=== PATIENT | male | born 1965 | race Caucasian/White ===

== ENCOUNTER 2020-06-25 14:32 | Outpatient (REF) | payer BC, SELFPAY ==
[2020-06-25 17:56] LABS: MANUAL DIFF FLAG NO
[2020-06-25 18:02] LABS: Basophils Percent Auto 0.4 % (0-2); Eosinophils Absolute Auto 0.2 X10*3/uL (0.0-0.4); Eosinophils Percent Auto 2.6 % (0-4); Hematocrit 41.2 % (42-52); Hemoglobin 13.8 g/dl (14.0-18.0); Imm Gran Abs Auto 0.02 X10*3/uL (0.00-0.03); Imm Gran Pct Auto 0.2 % (0.0-0.4); Lymphocytes Absolute Auto 1.8 X10*3/uL (1.2-4.9); Lymphocytes Percent Auto 19.6 % (20-40); Mean Corpuscular HGB Conc 33.5 g/dl (31.0-36.0); Mean Corpuscular Hemoglobin 29.4 pg (27.0-33.0); Mean Corpuscular Volume 87.7 fL (80-98); Mean Platelet Volume 10.1 fL (9.4-12.4); Monocytes Absolute Auto 0.6 X10*3/uL (0.1-1.2); Monocytes Percent Auto 6.2 % (2-11); Neutrophils Absolute Auto 6.5 X10*3/uL (2.0-8.3); Platelet Count 231 X10*3/uL (160-400); Red Cell Distribution Width 13.1 % (11.0-16.0); White Blood Count 9.1 X10*3/uL (4.8-10.8)
[2020-06-25 18:31] LABS: Alanine Aminotransferase 22 U/L (0-40); Albumin Level 4.4 g/dL (3.5-5.0); Alkaline Phosphatase 77 U/L (39-117); Anion Gap 14 (12-20); Aspartate Amino Transferase 11 U/L (5-37); Bilirubin Total 0.6 mg/dL (0.0-1.0); Blood Urea Nitrogen 12 mg/dL (9-16); Calcium 10.4 mg/dL (8.4-10.2); Carbon Dioxide 29 mmol/L (22-29); Chloride 103 mmol/L (96-108); Estimated Glomerular Filt Rate > 60; Glucose Random 95 mg/dL (60-115); Potassium 4.3 mmol/L (3.3-5.1); Sodium 142 mmol/L (135-145); Total Protein 6.8 g/dL (6.5-8.0)
[2020-06-25 18:52] LABS: Free T4 (Free Thyroxine) 0.92 ng/dL (0.71-1.85); Thyroid Stimulating Hormone 4.01 uIU/mL (0.32-4.0)
[2020-06-26 07:41] LABS: Estimated Average Glucose 108 mg/dL; Hemoglobin A1c % 5.4 %
== END 2020-06-25 14:33 | disposition home or self-care (01) ==
LOC: HO.MANLDS 14:32
PROVIDERS: PCP Internal Medicine; Visit Provider Physician Assistant
DX: I10 Essential (primary) hypertension (principal); E66.9 Obesity, unspecified
CPT/HCPCS: 36415; 80053; 83036; 84439; 84443; 85025

== ENCOUNTER 2020-12-31 10:33 | Outpatient (REF) | payer BC, SELFPAY ==
[2020-12-31 13:26] LABS: Free T4 (Free Thyroxine) 1.29 ng/dL (0.71-1.85); Thyroid Stimulating Hormone 0.96 uIU/mL (0.32-4.0)
== END 2020-12-31 10:34 | disposition home or self-care (01) ==
LOC: HO.MANLDS 10:33
PROVIDERS: PCP Physician Assistant; Visit Provider Physician Assistant
DX: E21.3 Hyperparathyroidism, unspecified (principal)
CPT/HCPCS: 36415; 84439; 84443

== ENCOUNTER 2021-03-31 11:15 | Outpatient (REF) | payer BC, SELFPAY ==
[2021-04-01 08:48] LABS: HBS Num1 8.07 mIU/mL (0-7.99)
[2021-04-01 09:06] LABS: Rubella IgG Antibody 2.76 Index; Rubeola IgG (Measles) >300.00 AU/mL
[2021-04-01 10:44] LABS: HBS Num2 8.42 mIU/mL (0-7.99); HBS Num3 9.25 mIU/mL (0-7.99); ~Hepatitis B Surface Antibody GRAYZONE (Nonreactive)
== END 2021-03-31 11:16 | disposition home or self-care (01) ==
LOC: HO.MANLDS 11:15
PROVIDERS: PCP Physician Assistant; Visit Provider Physician Assistant
DX: Z01.84 Encounter for antibody response examination (principal)
CPT/HCPCS: 36415; 86706; 86735; 86762; 86765; 86787

== ENCOUNTER 2021-04-14 10:39 | Outpatient (REF) | payer BC, SELFPAY ==
[2021-04-15 07:57] LABS: HBS Num1 7.52 mIU/mL (0-7.99); ~Hepatitis B Surface Antibody NONREACTIVE (Nonreactive)
== END 2021-04-14 10:40 | disposition home or self-care (01) ==
LOC: HO.MANLDS 10:39
PROVIDERS: PCP Physician Assistant; Visit Provider Physician Assistant
DX: Z01.84 Encounter for antibody response examination (principal)
CPT/HCPCS: 36415; 86706

== ENCOUNTER 2021-05-15 08:56 | Outpatient (REF) | payer BC, SELFPAY ==
--- NOTE | ~2021-05-15 | CT_ITS ---
EXAMINATION: CT CHEST WITHOUT CONTRAST CLINICAL INFORMATION: Shortness of breath. COMPARISON: None TECHNIQUE: Multidetector volumetric CT imaging of the chest was done. Axial MIP volume rendering provided. Sagittal and coronal reformatted images were obtained. This CT examination was performed using dose optimization techniques as appropriate, variously including the following: *Automated exposure control *Adjustment of mA and/or kV according to patient size (this includes techniques or standardized protocols for targeted exams where dose is matched to indication/reason for exam; i.e. extremities or head) *Use of iterative reconstruction technique DLP: 317 mGy-cm FINDINGS: CLIENT RELATION SPECIALIST: Elevated bilateral hemidiaphragms. LUNGS: The lungs are well expanded with no acute pneumonic process seen. There is a 5 mm triangular density right middle lobe adjacent to the right minor fissure axial image 84/6, likely a subpleural nodule. No additional nodules seen. There is no interstitial thickening, consolidation or ground-glass density. No evidence of bronchiectasis or peribronchial thickening. MEDIASTINUM: The central trachea and the bronchi are widely patent. The heart size and the great vessels are normal caliber. There are trace coronary artery calcifications. No pericardial effusion seen. No abnormal sized mediastinal or hilar lymph nodes visualized. PLEURA: There is no pleural effusion. No pleural mass or thickening. AXILLA: No lymphadenopathy. Incidental finding of right infraspinatus moderate-sized lipoma. UPPER ABDOMEN: There are punctate radiopaque gallstones without wall thickening. The visualized liver, spleen, pancreas, and bilateral adrenal glands are unremarkable. OSSEOUS STRUCTURES: There is moderate ventral spondylosis throughout the dorsal spine. No lytic process seen. CT/CT chest wo con IMPRESSION: No acute cardiopulmonary process seen. Triangular subpleural density right middle lobe adjacent to minor fissure is likely a small lymph node. No interstitial lung disease or ground-glass attenuation seen. Fleischner guidelines were followed.
== END 2021-05-15 08:57 | disposition home or self-care (01) ==
LOC: HO.CT 08:56
PROVIDERS: PCP Internal Medicine; Visit Provider Physician Assistant
DX: R06.02 Shortness of breath (principal)
CPT/HCPCS: 71250

== ENCOUNTER 2021-12-08 09:14 | Outpatient (REF) | payer BC, SELFPAY ==
[2021-12-08 10:21] LABS: MANUAL DIFF FLAG NO
[2021-12-08 10:23] LABS: Basophils Percent Auto 0.1 % (0-2); Eosinophils Absolute Auto 0.3 X10*3/uL (0.0-0.4); Eosinophils Percent Auto 2.7 % (0-4); Hematocrit 41.7 % (42.0-52.0); Hemoglobin 14.4 g/dl (14.0-18.0); Imm Gran Abs Auto 0.05 X10*3/uL (0.00-0.03); Imm Gran Pct Auto 0.5 % (0.0-0.4); Lymphocytes Absolute Auto 1.5 X10*3/uL (1.2-4.9); Lymphocytes Percent Auto 14.8 % (20-40); Mean Corpuscular HGB Conc 34.5 g/dl (31.0-36.0); Mean Corpuscular Hemoglobin 29.6 pg (27.0-33.0); Mean Corpuscular Volume 85.8 fL (80.0-98.0); Mean Platelet Volume 9.6 fL (9.4-12.4); Monocytes Absolute Auto 0.6 X10*3/uL (0.1-1.2); Monocytes Percent Auto 5.5 % (2-11); Neutrophils Absolute Auto 7.7 x10*3/uL (2.0-8.3); Neutrophils Percent Auto 76.4 % (45-73); Platelet Count 248 X10*3/uL (160-400); Red Blood Count 4.86 X10*6/uL (4.60-5.80); Red Cell Distribution Width 13.7 % (11.0-16.0); White Blood Count 10.1 X10*3/uL (4.8-10.8)
[2021-12-08 10:40] LABS: Estimated Average Glucose 111 mg/dL; Hemoglobin A1c % 5.5 %
[2021-12-08 11:07] LABS: Alanine Aminotransferase 20 U/L (0-40); Albumin Level 4.2 g/dL (3.5-5.0); Alkaline Phosphatase 77 U/L (39-117); Anion Gap 13 (12-20); Aspartate Amino Transferase 11 U/L (5-37); Bilirubin Total 0.7 mg/dL (0.0-1.0); Blood Urea Nitrogen 13 mg/dL (9-16); Carbon Dioxide 30 mmol/L (22-29); Chloride 101 mmol/L (96-108); Cholesterol 197 mg/dL; Estimated Glomerular Filt Rate > 60; Glucose Random 95 mg/dL (60-115); HDL Cholesterol 53 mg/dL; LDL Cholesterol Calculated 124 mg/dl; Potassium 4.3 mmol/L (3.3-5.1); Sodium 140 mmol/L (135-145); Total Protein 6.7 g/dL (6.5-8.0); Triglycerides 101 mg/dL
[2021-12-08 11:17] LABS: Free T4 (Free Thyroxine) 1.16 ng/dL (0.71-1.85); Prostate Specific Antigen 2.73 ng/mL (<0.05-4.0); Thyroid Stimulating Hormone 1.24 uIU/mL (0.32-4.0)
== END 2021-12-08 09:15 | disposition home or self-care (01) ==
LOC: HO.MANLDS 09:14
PROVIDERS: Visit Provider Physician Assistant
DX: Z12.5 Encounter for screening for malignant neoplasm of prostate (principal); I10 Essential (primary) hypertension; E03.9 Hypothyroidism, unspecified; E78.00 Pure hypercholesterolemia, unspecified; R73.01 Impaired fasting glucose
CPT/HCPCS: 36415; 80053; 80061; 83036; 84153; 84439; 84443; 85025

== ENCOUNTER 2022-03-24 11:54 | Outpatient (REF) | payer BC, SELFPAY ==
[2022-03-24 15:43] LABS: Vitamin B12 199 pg/mL (200-900)
== END 2022-03-24 11:55 | disposition home or self-care (01) ==
LOC: HO.MANLDS 11:54
PROVIDERS: Visit Provider Physician Assistant
DX: E53.8 Deficiency of other specified B group vitamins (principal)
CPT/HCPCS: 36415; 82607; 82746

== ENCOUNTER 2023-12-08 09:28 | Outpatient (REF) | payer BC, SELFPAY ==
[2023-12-08 13:09] LABS: MANUAL DIFF FLAG NO
[2023-12-08 13:16] LABS: Basophils Percent Auto 0.2 % (0-2); Eosinophils Absolute Auto 0.2 X10*3/uL (0.0-0.4); Hematocrit 40.2 % (42.0-52.0); Hemoglobin 13.7 g/dl (14.0-18.0); Imm Gran Abs Auto 0.02 X10*3/uL (0.00-0.03); Imm Gran Pct Auto 0.2 % (0.0-0.4); Lymphocytes Absolute Auto 1.6 X10*3/uL (1.2-4.9); Lymphocytes Percent Auto 19.5 % (20-40); Mean Corpuscular HGB Conc 34.1 g/dl (31.0-36.0); Mean Corpuscular Hemoglobin 29.2 pg (27.0-33.0); Mean Corpuscular Volume 85.7 fL (80.0-98.0); Mean Platelet Volume 10.1 fL (9.4-12.4); Monocytes Absolute Auto 0.5 X10*3/uL (0.1-1.2); Monocytes Percent Auto 6.2 % (2-11); Neutrophils Absolute Auto 5.8 x10*3/uL (2.0-8.3); Neutrophils Percent Auto 70.9 % (45-73); Platelet Count 220 X10*3/uL (160-400); Red Blood Count 4.69 X10*6/uL (4.60-5.80); Red Cell Distribution Width 13.4 % (11.0-16.0); White Blood Count 8.1 X10*3/uL (4.8-10.8)
[2023-12-08 14:01] LABS: Prostate Specific Antigen 4.47 ng/mL (<0.05-4.0)
[2023-12-08 14:06] LABS: Alanine Aminotransferase 20 U/L (0-40); Albumin Level 4.2 g/dL (3.5-5.0); Alkaline Phosphatase 72 U/L (39-117); Anion Gap 12 (12-20); Aspartate Amino Transferase 15 U/L (5-37); Bilirubin Total 0.8 mg/dL (0.0-1.0); Blood Urea Nitrogen 12 mg/dL (9-16); Calcium 10.1 mg/dL (8.4-10.2); Carbon Dioxide 27 mmol/L (22-29); Chloride 105 mmol/L (96-108); Cholesterol 113 mg/dL (<200); Estimated Average Glucose 111 mg/dL; Estimated Glomerular Filt Rate > 60; Glucose Random 98 mg/dL (60-115); HDL Cholesterol 48 mg/dL (>40); Hemoglobin A1c % 5.5 % (<6.0); Iron 91 mcg/dL (45-160); LDL Cholesterol Calculated 49 mg/dL (<100); Percent Iron Saturation 32 % (15-50); Potassium 3.3 mmol/L (3.3-5.1); Sodium 141 mmol/L (135-145); Total Iron Binding Capacity 281 mcg/dL (228-428); Total Protein 6.7 g/dL (6.5-8.0); Triglycerides 84 mg/dL (<150); Unsaturated Iron Binding 190 ug/dL
[2023-12-08 14:15] LABS: Folate 15.1 ng/mL (> or = 4.0); Vitamin B12 695 pg/mL (200-900)
[2023-12-08 14:26] LABS: Ferritin 51 ng/mL (20-250); Free T4 (Free Thyroxine) 0.96 ng/dL (0.71-1.85); Thyroid Stimulating Hormone 1.83 uIU/mL (0.32-4.0)
== END 2023-12-08 09:29 | disposition home or self-care (01) ==
LOC: HO.MANLDS 09:28
PROVIDERS: Visit Provider Physician Assistant
DX: E53.8 Deficiency of other specified B group vitamins (principal); E03.8 Other specified hypothyroidism; Z13.6 Encounter for screening for cardiovascular disorders; Z13.1 Encounter for screening for diabetes mellitus; Z12.5 Encounter for screening for malignant neoplasm of prostate
CPT/HCPCS: 36415; 80053; 80061; 82607; 82728; 82746; 83036; 83540; 84153; 84439; 84443; 85025

== ENCOUNTER 2024-01-28 14:32 | Outpatient (REF) | payer BC, SELFPAY ==
[2024-01-28 18:38] LABS: Prostate Specific Antigen 4.37 ng/mL (<0.05-4.0)
== END 2024-01-28 14:33 | disposition home or self-care (01) ==
LOC: HO.WFDLDS 14:32
PROVIDERS: Visit Provider Physician Assistant
DX: N40.0 Benign prostatic hyperplasia without lower urinary tract symptoms (principal); Z12.5 Encounter for screening for malignant neoplasm of prostate
CPT/HCPCS: 36415; 84153

== ENCOUNTER 2024-11-28 12:11 | Outpatient (REF) | payer BC, SELFPAY ==
--- OUTSIDE RECORDS SUMMARY | 2024-11-28 13:04 | XMS_ITS | Encounter Summary ---
Author Organization [facility] Address [address] [place] [address] Phone Care Team Providers Care Novelty Twister Tender Name Role Phone Joseph Allen DO Unavailable Joseph Allen DO Primary Care Provider [phone] Reason for Visit * Reason Comments Medication Refill Encounter Details Date Type Department Care Team (Late st Contact Info) Description 11/28/2024 Refill [facility] [address] [place] [address] 3rd Floor, [address] [place] [address] Kody Galvan MD [address] [facility], [address] [place] [address] [email or web address] Medication Refill Social History Tobacco Use Types Packs/Day Years Used Date Smoking Tobacco: Never Smokeless Tobacco: Never Alcohol Use Standard Drinks/Week Comments Yes 1 (1 standard drink = 0.6 oz pur e alcohol) 5 month Education Answer Date Recorded Are you interested in more education? Not on kajal e 08/28/2022 Are you concerned about learning? Not on file 08/28/2022 No 08/28/2022 No 08/28/2022 Digital Access Answer Date Recorded No 09/26/2022 No 09/26/2022 Reliable internet access at home? Not on file 09/26/2022 Device with a working camera? Not on file Intimate Partner Violence Answer Date R ecorded Denied Basic Needs Not on file 05/25/2022 In the past 12 months have y ou been in a relationship with a person who hurts, threatens, or tries to control you? No 05/25/2022 Worried food would run out Not on file 05/25 In the past 12 months have y ou been in a relationship with a person who hurts, threatens, or tries to control you? No 05/25/2022 Sex and Gender Information Value Date Recorded Sex Assigned at Not on file Legal Sex Male 9:42 PM EDT Gender Identity Not on file Sexual Orientation Not on file documented as of this encounter Progress Notes * Sameera Sloan MA - 11/28/2024 9:59 AM EDT RX REVIEWED documented in this encounter Plan of Treatment Upcoming Encounters Date Type Department Care Team (Late st Contact Info) Description 03/01/2025 10:15 AM EDT Appointment [address] [address] Jed Paulino MD [address] [place] [id number] 05/15/2025 9:20 AM EST Office Visit [facility] [address] [place] [address] [address]rd Floor, [address] [place] [address] Jey Doss MD [address] [place] [id number] documented as of this encounter Visit Diagnoses Diagnosis Angina pectoris Other and unspecified angina pectoris documented in this encounter Care Teams Novelty Twister Tender Relationship Specialty Start Date End Date Joseph Allen DO [address] [facility] [place] [address] PCP - General Internal Medicine 03/21/21 Joseph Allen DO [address] [place] [address] [email or web address] Insurance Assigned Provider 08/07/23 documented as of this encounter Additional Source Comments The information contained in this document represents components of the legal health record. It is not the complete legal health record.[facility]
--- OUTSIDE RECORDS SUMMARY | 2024-11-28 13:04 | XMS_ITS | Data Portability ---
Author Organization [facility], [facility] Address [address] [place] [address] Care Team Providers Care Pharmacy District Manager Name Role Phone KEISHA GONZALEZ Primary Care Provider [phone] FRANTZ QUEZADA Primary Care Provider Assessment Encounter Date Assessment Date Assessment LastModified by Organization Details LastModified Time 04/03/2016 04/03/2016 51yo man, with a family history high calcium in his brother, and personal history of hypertension, kindly referred by Dr. Dimas to review hyperparathyroidism, off hctz few months or a year (possibly 01/15 - 01/16). Stopping hydrochlorothiazide has reduced calcium, but parathyroid hormone remains up and he is relatively young. Labs reviewed: 03/31/16 pth 95pg/mL, cr 0.6, ca 10mg/dL, albumin 4.5g/dL, 11/08/15 glc 100mg/dL, cr 0.6, ca 9.6 (ref 8.4, 10.3), phos 3.4mg/dL (ref 2.7, 4.5), gfr >60mL/min, pth 123pg/mL (ref 15, 65), 11/10/15 urine calcium 218mg/24h, urine cr 1683mg/24h, fractional excretion of calcium 0.008 [FECa; (218/9.6)/(1683/0.6)] , urine volume 1.7L/24h, urine phos 1110mg/24h (ref 400, 1300), 05/08/15 pth 106. Serum calcium has been high normal since testing started in 2010, was mildly elevated between 10.5 and 10.8mg/dL from 04/19/14 to 05/08/15, and fell to a colleen of 9.6 on most recent testing on 11/08/15. FECa less than 0.01, family history of high calcium in his brother, and the stability of calcium levels over time raise the possibility of familial hypocalciuric hypercalcemia (FHH), though this also may be due to use of hctz (he is unsure if he was on hctz during urine testing). However, an evolving parathyroid adenoma is possible, the lower serum creatinine contributes to a lower FECa, and urine calcium is high normal. Even if this is a parathyroid andenoma, there is no firm indication for parathyroidectomy. I suggest a DXA bone density test, repeating blood calcium testing in 6mo, clarifying his family history of high calcium, kidney stones or osteoporosis, and discussing again in 6mo. If FECa remains low off of hctz and serum calcium rises, genetic testing for CaSR gene could be considered to exclude FHH. I spent 3 minutes counseling the patient on tobacco cessation. He is precontemplative due to low use 6 to 8 times yearly. [email or web address] Not available 04/03/2016 09:11:22 06/30/2023 06/30/2023 58yo man, with a family history high calcium in his brother, and personal history of hypertension, kindly referred by Dr. Gonzalez to review hyperparathyroidism, off hctz few months or a year (possibly 01/15 - 01/16). Stopping hydrochlorothiazide has reduced calcium, but parathyroid hormone remains up and he is relatively young. Labs reviewed: 01/28/23 cr 0.5, ca 10.3, albumin 4.5, corrected ca 9.9, glc 94, phos 2.7, tsh 3.2, pth 85 (ref 15, 65), 03/31/16 pth 95pg/mL, cr 0.6, ca 10mg/dL, albumin 4.5g/dL, 11/08/15 glc 100mg/dL, cr 0.6, ca 9.6 (ref 8.4, 10.3), phos 3.4mg/dL (ref 2.7, 4.5), gfr >60mL/min, pth 123pg/mL (ref 15, 65), 11/10/15 urine calcium 218mg/24h, urine cr 1683mg/24h, fractional excretion of calcium 0.008 [FECa; (218/9.6)/(1683/0.6)] , urine volume 1.7L/24h, urine phos 1110mg/24h (ref 400, 1300), 05/08/15 pth 106. Serum calcium has been high normal since testing started in 2010, was mildly elevated between 10.5 and 10.8mg/dL from 04/19/14 to 05/08/15, and fell to a colleen of 9.6 on 11/08/15. Pth has been stable and mildly high. Calcium has been normal recently. Thyroid hormone is normal. 04/23/16 DXA described L1:4 t-score +2.2 and left femoral neck t-score +0.6, which is consistent with normal bone density. We discussed his normocalcemic hyperparathyroidism. He has had normal bone density, which is reassuring. The differential includes an early parathyroid adenoma, familial hypocalciuric hypercalcemia (FHH), or other issue. I suggest updating a bone density and routine labs with wellness visits but do not see a reason for intervention at this time. Reasons to reevaluate for surgery would be calcium above 1 more than the upper limit of normal, fragility fracture, osteoporosis on DXA, or kidney stones. BP is at goal, though chlorthalidone may contribute to higher blood calcium if this becomes a concern due to reduced urine calcium. The patient will follow up with you for monitoring, labs, and scripts in the future. They will only see me as needed for follow up. [email or web address] Not available 06/30/2023 09:23:44 Plan of Treatment Reminders Order Date Submit Date Provider Last Modified By Organization Details Last Modified Time Details Appointments None recorded. Lab None recorded. Referral None recorded. Procedures None recorded. Surgeries None recorded. Imaging bone density 2023 024 [facility], [address] [facility], [place], [address], 5 10:01:04 bone density 2015 016 [facility] ([facility]), [address], [place], [address], 6 10:30:28 Medication Orders None recorded. Patient TargetsNo targets recorded. Patient Instructions Encounter Date Encounter Id Patient Instructions Last Modified By Organization Details Last Modified Time 04/03/2016 [id number] -we discussed normalized calcium -borderline high calcium may be due to a normal variation or a tumor -borderline high calcium is not concerning -bone density testing -blood tests 6mo to monitor, discuss again 2 weeks later -clarify when you stopped hydrochlorothiazide hctz, were you on this when you had the 24h urine test in 11/15? -I encourage stopping tobacco/cigar use completely -you decline quitting for now due to low [email or web address] Not available 04/03/2016 09:10:58 Reason for Referral None Reported. Results Created Date Observation Date Name Description Value Unit Range Abnormal Flag Note LastModifiedBy Organization Detail LastModifiedTime 03/31/20 16 03/31/2016 PTH (para thyro id hormo ne), intac t, serum or plasm a PTH, stat 95 pg/mL 15-65 high Not Available [address], [address], 03/31/2016 18:37:35 03/31/20 16 03/31/2016 CMP, serum or plasm a glucose 153 mg/dL 70-99 high Not Available [address], [address], 03/31/2016 18:52:40 03/31/20 16 03/31/2016 CMP, serum or plasm a BUN 12 mg/dL 6-19 Not Available [address], [address], 03/31/2016 18:52:40 03/31/20 16 03/31/2016 CMP, serum or plasm a creatinine 0.6 mg/dL 0.5-1. 5 Not Available [address], [address], 03/31/2016 18:52:40 03/31/20 16 03/31/2016 CMP, serum or plasm a GFR >60 mL/mi n >60 NKDEP (Debbi onal Kidne y Disea se Educa tion Progr am) does not endor se the use of the MDRD (Ary ficat ion of Diet in Renal Disea se) equat ion for estim ating GFR in patie nts that are not betwe en the ages of 18 and 70. Not Available [address], [address], 03/31/2016 18:52:40 03/31/20 16 03/31/2016 CMP, serum or plasm a sodium 141 mEq/L 133-14 6 Not Available [address], [address], 03/31/2016 18:52:40 03/31/20 16 03/31/2016 CMP, serum or plasm a potassium 3.8 mEq/L 3.3-5. 2 Not Available [address], [address], 03/31/2016 18:52:40 03/31/20 16 03/31/2016 CMP, serum or plasm a chloride 103 mEq/L 96-108 Not Available [address], [address], 03/31/2016 18:52:40 03/31/20 16 03/31/2016 CMP, serum or plasm a CO2 23 mEq/L 21-35 Not Available [address], [address], 03/31/2016 18:52:40 03/31/20 16 03/31/2016 CMP, serum or plasm a calcium 10.0 mg/dL 8.4-10 .3 Not Available [address], [address], 03/31/2016 18:52:40 03/31/20 16 03/31/2016 CMP, serum or plasm a total bilirubin 0.5 mg/dL 0.0-1. 2 Not Available [address], [address], 03/31/2016 18:52:40 03/31/20 16 03/31/2016 CMP, serum or plasm a alkaline phosphatase 79 U/L 39-117 Not Available [address], [address], 03/31/2016 18:52:40 03/31/20 16 03/31/2016 CMP, serum or plasm a AST (SGOT) 10 U/L 0-37 Not Available [address], [address], 03/31/2016 18:52:40 03/31/20 16 03/31/2016 CMP, serum or plasm a ALT (SGPT) 16 U/L 0-40 Not Available [address], [address], 03/31/2016 18:52:40 03/31/20 16 03/31/2016 CMP, serum or plasm a total protein 6.7 g/dL 6.5-8. 0 Not Available [address], [address], 03/31/2016 18:52:40 03/31/20 16 03/31/2016 CMP, serum or plasm a albumin 4.5 g/dL 3.9-4. 8 Not Available [address], [address], 03/31/2016 18:52:40 03/31/20 16 03/31/2016 CMP, serum or plasm a globulin 2.2 gm/dL 1.0-4. 8 Not Available [address], [address], 03/31/2016 18:52:40 03/31/20 16 03/31/2016 CMP, serum or plasm a A/G ratio 2.0 gm/dL 1.0-4. 8 Not Available [address], [address], 03/31/2016 18:52:40 03/31/20 16 03/31/2016 CMP, serum or plasm a anion gap 19 mEq/L 10-20 Not Available [address], [address], 03/31/2016 18:52:40 04/27/20 16 04/23/2016 bone densi ty OBSERV ATION: Your patien t comple caitlyn a bone minera l densit y test at our facili ty on . The indica tions were Caucas janet race and hyperp arathy roidis m. There were no prior studie s availa ble for compar nhi. His AP lumbar spine T score averag e is +2.2. is AP lumbar spine T score averag e is +2.2. His femora l neck T score mean is +0.8. At this time, your patien t has a normal bone minera l densit y. No follow -up studie s are necess henry unless clinic ally indica caitlyn. Electr onical ly signed Rere gonzales: Fede Michaels MD [facility] ([facility]) [address], [place], [address], 05/08/2016 14:10:24 Result Notes None recorded. Procedures Surgical History Date Name Laterality Status Provider Name and Address Organization Details Recorded Time 05/22/19 15 Forest - Colonoscopy completed Chris Garg [address] [place] [address], [phone], [facility] 05/22/2014 14:33:47 05/03/19 11 Tonsillectomy completed Ambar Maxwell RN BSN [address] [place] [address], [phone], [facility] 04/03/2016 08:32:41 05/03/19 11 Sinus Surgery completed Jed Paulino MD [address] [place] [address], [phone], [facility] 04/03/2016 08:45:28 Imaging Results None recorded. Procedure Notes None recorded. Medical Equipment None Reported. Allergies No known drug allergies Medications Name Sig Start Date Stop Date Status Note LastModified by Organization Details LastModified Time cyclobenza loida 10 mg tablet 1 tab PO daily active Not Available Not Available No t Available ketoconazo le 2 % shampoo PLEASE SEE ATTACHED FOR DETAILED DIRECTIO NS 06/30 completed Not Available Not Available Not Available isosorbide mononitrat e ER 30 mg tablet,ext ended release 24 hr TAKE 1 TABLET BY MOUTH EVERY DAY active as needed Not Available Not Available Not Available Synthroid 100 mcg tablet active Not Available Not Available Not Available valsartan 160 mg-hydroch lorothiazi de 12.5 mg tablet 04/03 completed Not Available Not Available Not Available alclometas one 0.05 % topical cream active Not Available Not Available Not Available chlorthali done 25 mg tablet active Not Available Not Available Not Available amlodipine 10 mg tablet 1 tab PO daily active Not Available Not Available No t Available cyanocobal tatum (vit B-12) 1,000 mcg/mL injection solution INJECT 1 ML SUBCUTAN EOUSLY EVERY MONTH active Not Available Not Available No t Available nitroglyce rin 0.[address] 1 TABLET UNDER TONGUE EVERY 5 MINUTES NEEDED FOR CHEST PAIN UP TO 3 DOSES active Not Available Not Available No t Available metoprolol succinate ER 25 mg tablet,ext ended release 24 hr TAKE 1 TABLET (25 MG TOTAL) BY MOUTH DAILY. active Not Available Not Available No t Available zolpidem 10 mg tablet 1 tab PO daily PRN active Not Available Not Available No t Available fluocinoni de 0.05 % topical cream active Not Available Not Available Not Available irbesartan 300 mg tablet active Not Available Not Available Not Available valsartan 160 mg tablet active Not Available Not Available Not Available azithromyc in 500 mg tablet TAKE 1 TABLET EVERYDAY BY MOUTH FOR TRAVELER 'S DIARRHEA active Not Available Not Available No t Available rosuvastat in 20 mg tablet active Not Available Not Available Not Available Klor-Con M20 mEq tablet,ext ended release TAKE 1 TABLET BY MOUTH EVERY DAY active Not Available Not Available No t Available zolpidem ER 6.25 mg tablet,ext ended release,mu ltiphase active Not Available Not Available Not Available aspirin 81 mg , takes 2 tabs active Not Available Not Available No t Available BD Insulin Syringe Ultra-Fine 1 mL 30 gauge x 1/2 active Not Available Not Available Not Available Vitals Date Recorded Body weight Body mass index (BMI) Body height Heart rate Systolic And Diastolic Provider Name and Address Organization Details Last Updated DateTime 06/30/2023 002980.5 g 39 kg/m2 170.18 cm 69 /min 116/74 mm[Hg] Hayley Donovan LPN [facility] 06/30/2023 08:40:50 Date Recorded Body weight Body height Body mass index (BMI) Heart rate Systolic And Diastolic Provider Name and Address Organization Details Last Updated DateTime 04/03/2016 831059.3 9 g 170.18 cm 37.1 kg/m2 66 /min 130/86 mm[Hg] Ambar Maxwell RN BSN [address] [place], [address] , [facility] 04/03/2016 08:36:56 Social History Question Answer Notes LastModified by Organizat ion Details LastModified Time Tobacco Smoking Status Former Smoker occasional cigars, 04/03/16 may smoke occasional cigar Hayley Donovan LPN null, [facility] 06/30/2023 08:38:26 Which Illicit Or Recreational Drugs Have You Used? None Denies, 04/03/16 [email or web address] Information not available 04/03/2016 Sex: Unknown Functional Status Question Answer Note LastModified by Organizat ion Details LastModified Time What is your level of alcohol consumption? 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 Family History Relationship Description Onset Age of this Age Resolved Age Notes LastModified by Organization Details LastModified Time Father Congestive heart failure 76 dads passed 2005 76 years Not available 06/30/2023 08:35:44 Father Essential hypertension [email or web address] Not available 06/2015 08:30:30 Father Heart disease [email or web address] Not available 2015 08:40:30 Mother Diabetes mellitus Mom had stroke 2020 Not available 06/30/2023 08:37:11 Sister Hoffmann syndrome sister passed 2001 Not available 06/30/2023 08:36:35 Brother Hypercalcemi a [email or web address] Not available 2015 08:53:48 Notes:2 brothers with high b lood pressure Medical History Condition Response Hypertension Y Past Encounters Encounter ID Performer Location Encounter Start Date Encounter Closed Date Diagnosis/Indication Diagnosis SNOMED-CT Code Diagnosis ICD10 Code Diagnosis Note [id number] Chris Forest [facility], [address] [address] 05/22/2014 12:24:21 05/22/2014 14:39:49 [id number] Jed Paulino MD [facility]ocr[facility] [address] [address] 04/03/2016 08:22:29 04/03/2016 09:24:55 Primary hyperparathyroidism 05446636 E21.0 -we discussed normalized calcium -borderlin e high calcium may be due to a normal variation or a tumor -borderlin e high calcium is not concerning -bone density testing -blood tests 6mo to monitor, discuss again 2 weeks later-clar mandeep when you stopped hydrochlor othiazide hctz, were you on this when you had the 24h urine test in 11/15? Hypercalcemia 83897404 E 83.52 Tobacco user 322377759 Z 72.0 -I encourage stopping tobacco/ci gar use completely -you decline quitting for now due to low [id number] Jed Paulino MD Endocrino [address] [address] 06/30/2023 08:10:48 06/30/2023 09:24:38 Primary hyperparathyroidism 44062547 E21.0 -we discussed normalized calcium -borderlin e high calcium may be due to a normal variation or a tumor -borderlin e high calcium is not concerning -bone density testing repeat -repeat pth, calcium, albumin with wellness labs, this has been stable, no need for interventi on at this time -you prefer to see TELEPHOTO ENGINEER Nai for follow up and will only see me as needed Essential hypertension 67501792 I10 -chlorthal idone Health Concerns Section Related Observation LastModified by Organization Detai ls LastModified Time None Recorded Concern Status LastModified by Organization Details LastModified Time None Recorded Advance Directives Directive None Recorded Payers Insurance Date Sequence Insurance Name Policy Number Policy Fierro Covered Member ID Fierro Member ID Guarantor Name 02/12/2023 1 [place] [id number] Marquise Mcpherson [id number] Marquise Mcpherson 06/29/2023 1 [place] [id number] Marquise Mcpherson [id number] Marquise Mcpherson 02/12/2023 1 [employer] [place]) [id number] Marquise Mcpherson [id number] Marquise Mcpherson
[2024-11-28 18:42] LABS: Prostate Specific Antigen 6.69 ng/mL (<0.05-4.0)
== END 2024-11-28 12:12 | disposition home or self-care (01) ==
LOC: HO.MANLDS 12:11
PROVIDERS: Visit Provider Physician Assistant
DX: N40.0 Benign prostatic hyperplasia without lower urinary tract symptoms (principal)
CPT/HCPCS: 36415; 84153